=== PATIENT | male | born 1950 | race Caucasian/White ===

== ENCOUNTER → 2020-10-16 | Outpatient (CLI) | payer MEDICARE ==
--- NOTE | 2020-10-16 12:32 | RAD ---
CLINICAL HISTORY: Abdominal aortic aneurysm screening, history of hypertension. COMPARISON: None available. TECHNIQUE: The abdominal aorta was examined from the diaphragm to the proximal common iliac arteries. FINDINGS: Minimal atherosclerotic plaques visualized throughout the abdominal aorta. The proximal abdominal aorta is not visualized due to overlying bowel gas. The mid abdominal aorta measures 2.2 x 2.0 cm. PSV: 91 cm/s The distal abdominal aorta measures 1.9 x 2.0 cm. PSV: 88 cm/s The right common iliac artery measures 1.4 x 1.1 cm in diameter. PSV: 127 cm/s. The left common iliac artery measures 1.4 x 1.0 cm in diameter. PSV: 115 cm/s. IMPRESSION: No evidence for infrarenal abdominal aortic aneurysm. Electronically signed by: May Kaiser MD (10/16/2020 12:30 PM) [facility]
== END ==
LOC: US 07:54
PROVIDERS: ATTEND Specialist
DX: Z00.00 Encounter for general adult medical examination without abnormal findings (principal); I70.0 Atherosclerosis of aorta; Z87.891 Personal history of nicotine dependence
CPT/HCPCS: 76770